=== PATIENT | female | born 1950 | race Caucasian/White ===

== ENCOUNTER 2019-02-17 09:16 | Day surgery (SDC) | payer MEDICARE, OTHER ==
[2019-02-17] VITALS (11 sets, daily range): BP systolic 136–168; BP diastolic 66–96; PULSE 62–80; RESP 16–25; Ht 160 cm; Wt 78.3 kg
[~2019-02-17] VITALS: Ht 160 cm; Wt 78.3 kg
[~2019-02-17 09:16] MED LIST: AMLO-147 PO; LOSA100T15 PO
[2019-02-17] MEDS ORDERED: INDOMETHACIN 50 MG SUPP PR ONE (09:50)
[2019-02-17] MEDS ORDERED: IOHEXOL 300MG/ML 30 ML BTL ONE (09:54)
[2019-02-17] MEDS ORDERED: NEOSTIGMINE 3 MG/3 ML SYRINGE ONE (10:47)
[2019-02-17] MEDS ORDERED: GLYCOPYRROLATE 0.4 MG INJ ONE (10:47)
[2019-02-17] MEDS ORDERED: LIDOCAINE 2% (SDV) 5 ML INJ ONE (10:47)
[2019-02-17] MEDS ORDERED: PROPOFOL 20 ML ONE (10:47)
[2019-02-17] MEDS ORDERED: ROCURONIUM 50 MG INJ ONE (10:47)
[2019-02-17] MEDS ORDERED: SUCCINYLCHOLINE CHLORIDE 100 MG/5 ML SYG IV ONE (10:47)
[2019-02-17] MEDS ORDERED: CIPROFLOXACIN 400MG/D5W 200 ML ONE (11:27)
[2019-02-17] MEDS ORDERED: EPHEDrine 25 MG/5 ML SYG IV PRN (11:30)
[2019-02-17] MEDS ORDERED: OXYCODONE/ACETAMINOPHEN (5/325) TAB PO PRN ×2 (11:30)
[2019-02-17] MEDS ORDERED: MIDAZOLAM 1 MG/ML 2 ML INJ IV PRN (11:30)
[2019-02-17] MEDS ORDERED: ONDANSETRON 4 MG INJ IV PRN (11:30)
[2019-02-17] MEDS ORDERED: DIPHENHYDRAMINE 50 MG INJ IV PRN (11:30)
[2019-02-17] MEDS ORDERED: METOCLOPRAMIDE 10 MG INJ IV PRN (11:30)
[2019-02-17] MEDS ORDERED: hydrALAzine 20 MG INJ IV PRN (11:30)
[2019-02-17] MEDS ORDERED: HYDROmorphONE 1 MG/5 ML IV SYRINGE IV PRN ×3 (11:30)
[2019-02-17] MEDS ORDERED: LABETALOL HCL 20MG INJ IV PRN (11:30)
== END 2019-02-17 13:35 | disposition home or self-care (01) ==
LOC: SDS 09:16 → GIL 09:16
PROVIDERS: ATTEND Internal Medicine Gastroenterology
DX: K80.50 Calculus of bile duct without cholangitis or cholecystitis without obstruction (principal); I10 Essential (primary) hypertension
CPT/HCPCS: 43264; 43275; 74330; 80048; 85025; 85610; 85730; 93005; J0744; J2405; Q9967; J2710